=== PATIENT | female | born 1995 | race Caucasian/White ===

== ENCOUNTER 2018-08-30 09:22 | Emergency (ER) | payer OTHER | END 2018-08-30 10:54 | disposition home or self-care (01) | LOC: FTE 09:22 | DX: M25.562 Pain in left knee (principal) | CPT/HCPCS: 73562; 81025; 99283-25 ==

== ENCOUNTER 2019-01-25 15:24 | Emergency (ER) | payer OTHER ==
[2019-01-25] MEDS: KETOROLAC 60 MG INJ IM (16:15)
== END 2019-01-25 17:36 | disposition home or self-care (01) ==
LOC: FTE 15:24
DX: S89.91XA Unspecified injury of right lower leg, initial encounter (principal); W10.8XXA Fall (on) (from) other stairs and steps, initial encounter; Y92.007 Garden or yard of unspecified non-institutional (private) residence as the place of occurrence of the external cause
CPT/HCPCS: 73590; 81025; 96372; 99284-25